=== PATIENT | male | born 1990 | race Hispanic/Latino ===

== ENCOUNTER 2019-06-14 13:02 | Emergency (ER) | payer SELFPAY ==
[2019-06-14 13:11] VITALS: BP 128/80
--- NOTE | 2019-06-14 13:15 | Event Note ---
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 Further treatment and workup at subsequent clinical providers discretion. Patient/guardian urged not to elope from the ED as their condition may be serious if not clinically assessed and managed.
--- NOTE | 2019-06-14 16:09 | Ultrasound Report ---
ULTRASOUND SCROTUM INDICATION / CLINICAL INFORMATION: testicular pain and swelling. COMPARISON: None available. FINDINGS -- RIGHT TESTIS: Size = 5.4 x 2.4 x 3.8 cm. - Appearance: No significant abnormality. - Cyst or Mass: None. - Color Doppler Flow: No significant abnormality. EPIDIDYMIS: No significant abnormality. Tiny cyst versus spermatocele with 4 mm greatest dimension i s seen in the epididymal head. HYDROCELE: Small, simple VARICOCELE: None demonstrated. FINDINGS -- LEFT TESTIS: Size = 5.3 x 2.6 x 3.3 cm. - Appearance: No significant abnormality. - Cyst or Mass: None. - Color Doppler Flow: No significant abnormality. EPIDIDYMIS: No significant abnormality. HYDROCELE: Small, simple VARICOCELE: None demonstrated. ADDITIONAL FINDINGS: None. IMPRESSION: 1. No acute abnormality. Small, simple hydroceles are seen on both sides. Signer Name: Izaiah Hardin MD Signed: 06/14/2019 4:05 PM Workstation Name: [id number]
--- NOTE | 2019-06-14 16:47 | Emergency Department Report ---
ED Male HPI - General Chief complaint: Rectal Pain Stated complaint: ANAL PAIN Time Seen by Provider: 06/14/19 13:12 Source: patient Mode of arrival: Ambulatory Limitations: No Limitations - History of Present Illness Initial comments: 28-year-old Caucasianmale department complaining of rectal pain and irritation which appears to be worse at night and has a strong suspicion of a rectal parasite or an infection. He reports no rectal bleeding. No fever, chills, sweats no chest pain or palpitations no nausea, no abdominal pain. Subsequently states that he also is having symptoms of issues with his testicles and feel like they have been strangulated disease noticed some testicular pain and swelling with no dysuria or rash. He reports no rectal penetration are no penile trauma. He denies any possibility of an STD MD Complaint: testicle pain, testicle swelling -: Gradual Location: left testicle Radiation: none Quality: aching Improves with: none Worsens with: palpation swelling. denies: discharge, urinary retention, blood in urine, incontinence - Related Data Previous Rx's Medication Instructions Recorded Last Taken Type Hydrocortisone [Anucort-HC SUPPOS] 25 mg RC BID #14 supp.rect 06/14/19 Unknown Rx Hydrocortisone [Anusol-Hc 2.5% TOP 1 gm RC TID PRN #30 cream..g. 06/14/19 Unknown Rx CREAM] Mebendazole (Nf) [Vermox Chew (Nf)] 100 mg PO ONCE #1 tablet 06/14/19 Unknown Rx Allergies Allergy/AdvReac Type Severity Reaction Status Date / Time No Known Allergies Allergy Unverified 06/14/19 13:07 ED Review of Systems ROS: Stated complaint: ANAL PAIN Other details as noted in HPI Comment: All other systems reviewed and negative ED Past Medical Hx - Past Medical History Previous Medical History?: No - Surgical History Past Surgical History?: No - Social History Smoking Status: Never Smoker Substance Use Type: None - Medications Home Medications: Home Medications Medication Instructions Recorded Confirmed Last Taken Type Hydrocortisone [Anucort-HC SUPPOS] 25 mg RC BID #14 supp.rect 06/14/19 Unknown Rx Hydrocortisone [Anusol-Hc 2.5% TOP 1 gm RC TID PRN #30 cream..g. 06/14/19 Unknown Rx CREAM] Mebendazole (Nf) [Vermox Chew (Nf)] 100 mg PO ONCE #1 tablet 06/14/19 Unknown Rx ED Physical Exam - General Limitations: No Limitations General appearance: alert, in no apparent distress - Head Head exam: Present: atraumatic, normocephalic - Eye Eye exam: Present: normal appearance - ENT ENT exam: Present: mucous membranes moist - Neck Neck exam: Present: normal inspection - Respiratory Respiratory exam: Present: normal lung sounds bilaterally. Absent: respiratory distress - Cardiovascular Cardiovascular Exam: Present: regular rate, normal rhythm. Absent: systolic murmur, diastolic murmur, rubs, gallop - GI/Abdominal GI/Abdominal exam: Present: soft, normal bowel sounds - Rectal Rectal exam: Present: deferred, normal rectal tone, hemorrhoids, tenderness - exam: Present: testicular tenderness, scrotal swelling. Absent: urethral discharge - Extremities Exam Extremities exam: Present: normal inspection - Back Exam Back exam: Present: normal inspection - Neurological Exam Neurological exam: Present: alert, oriented X3 - Psychiatric Psychiatric exam: Present: normal affect, normal mood - Skin Skin exam: Present: warm, dry, intact, normal color. Absent: rash ED Course Vital Signs 06/14/19 13:08 Temperature 97.8 F Pulse Rate 88 Respiratory 20 Rate Blood Pressure 128/80 O2 Sat by Pulse 99 Oximetry Critical care attestation.: If time is entered above; I have spent that time in minutes in the direct care of this critically ill patient, excluding procedure time. ED Disposition Clinical Impression: Proctalgia, Acute hemorrhoid, Testicle pain, Hydrocele of testis Disposition: DC-01 TO HOME OR SELFCARE Is pt being admited?: No Does the pt Need Aspirin: No Condition: Stable Instructions: Hemorrhoids (ED), Hydrocele (ED), Testicle Pain (ED) Prescriptions: Hydrocortisone [Anucort-HC SUPPOS] 25 mg RC BID #14 supp.rect Hydrocortisone [Anusol-Hc 2.5% TOP CREAM] 1 gm RC TID PRN #30 cream..g. PRN Reason: rectal pain Mebendazole (Nf) [Vermox Chew (Nf)] 100 mg PO ONCE #1 tablet Referrals: GWENDOLYN NOLEN MD [Staff Physician] - 3-5 Days
== END 2019-06-14 17:01 | disposition home or self-care (01) ==
LOC: ED 13:02
DX: N43.3 Hydrocele, unspecified (principal); K64.9 Unspecified hemorrhoids; Z79.899 Other long term (current) drug therapy
CPT/HCPCS: 93975